=== PATIENT | female | born 1985 | race African-American/Black ===

== ENCOUNTER 2021-11-02 11:05 | Emergency (ER) | payer OTHER ==
[~2021-11-02] VITALS: Ht 165.1 cm; Wt 77.1 kg
[2021-11-02] MEDS ORDERED: BEBTELOVIMAB 175 MG INJ IV ONE (11:45)
[2021-11-02] MEDS ORDERED: AZITHROMYCIN250 MG PO ×2 (13:07→13:35)
== END 2021-11-02 14:05 | disposition home or self-care (01) ==
LOC: ER 11:29
DX: R05.9 Cough, unspecified (principal); U07.1 COVID-19; J06.9 Acute upper respiratory infection, unspecified; J02.9 Acute pharyngitis, unspecified
CPT/HCPCS: 83518; 87070; 99283